=== PATIENT | male | born 1990 ===

== ENCOUNTER 2017-08-21 08:21 | Emergency (ER) | payer MEDICAID ==
[2017-08-21 08:21] VITALS: BMI 20.5
[2017-08-21 08:41] VITALS: RESP 18
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
--- NOTE | 2017-08-21 11:17 | RAD ---
PROCEDURE: Right Ankle Radiographs. HISTORY: Pain, s/p fall COMPARISON: None FINDINGS: BONES: Bone alignment and mineralization are normal. There is no acute displaced fracture or bone destruction. JOINTS: Normal. Ankle mortise maintained. Talar dome intact SOFT TISSUES: Normal. OTHER FINDINGS: None. IMPRESSION: No acute fracture or dislocation.
--- NOTE | 2017-08-21 11:17 | RAD ---
PROCEDURE: Left Ankle Radiographs. HISTORY: pain s/p fall COMPARISON: None FINDINGS: BONES: Bone alignment and mineralization are normal. There is no acute displaced fracture or bone destruction. JOINTS: Normal. Ankle mortise maintained. Talar dome intact SOFT TISSUES: Normal. OTHER FINDINGS: None. IMPRESSION: No acute fracture or dislocation.
--- NOTE | 2017-08-21 11:19 | RAD ---
PROCEDURE: Left Knee Radiographs. HISTORY: Pain. COMPARISON: None. FINDINGS: BONES: Bone alignment and mineralization are normal. There is no acute displaced fracture or bone destruction. JOINTS: Normal. JOINT EFFUSION: None. OTHER FINDINGS: None. IMPRESSION: No acute fracture or dislocation.
[2017-08-21 11:51] VITALS: BP 112/73; PULSE 74; TEMP 98; O2SAT 98
== END 2017-08-21 11:53 | disposition home or self-care (01) ==
LOC: ED 08:21
DX: M25.562 Pain in left knee (principal); S93.409A Sprain of unspecified ligament of unspecified ankle, initial encounter; W51.XXXA Accidental striking against or bumped into by another person, initial encounter